=== PATIENT | male | born 1960 | race Caucasian/White ===

== ENCOUNTER 2019-01-14 23:12 | Emergency (ER) | payer OTHER ==
[~2019-01-14] VITALS: Ht 177.8 cm; Wt 122.5 kg
[~2019-01-14 23:12] MED LIST: BAYER CHEWABLE81 MG PO; CARAFATE PO; LISINOPRIL10 MG PO; PROTONIX40 M1 PO; ZOCOR 10 MG TAB10 MG PO
[2019-01-15] MEDS ORDERED: HYDROCHLOROTH12.5 M1 PO (00:45)
[2019-01-15] MEDS ORDERED: NORVASC5 MG PO (00:45)
[2019-01-15 01:19] VITALS: BP 137/52
== END 2019-01-15 01:24 | disposition home or self-care (01) ==
LOC: M.ERS 23:12
DX: T78.3XXA Angioneurotic edema, initial encounter (principal); I10 Essential (primary) hypertension; E78.00 Pure hypercholesterolemia, unspecified; G89.29 Other chronic pain; M54.9 Dorsalgia, unspecified; Z88.8 Allergy status to other drugs, medicaments and biological substances; Y84.9 Medical procedure, unspecified as the cause of abnormal reaction of the patient, or of later complication, without mention of misadventure at the time of the procedure; Y92.89 Other specified places as the place of occurrence of the external cause